=== PATIENT | female | born 1980 | race Caucasian/White ===

== ENCOUNTER 2020-01-30 10:47 | Inpatient (IN) | payer OTHER, SELFPAY ==
[~2020-01-30] VITALS: Ht 177.8 cm; Wt 90.7 kg
[2020-01-30 10:47] VITALS: BP_SYST 92
--- NOTE | 2020-01-30 10:47 | NUR ---
Patient to ER bed 7 to gown for evaluation. Side rails up.
--- NOTE | 2020-01-30 11:00 | NUR ---
ER Dr. Herndon at bedside examining patient.
[2020-01-30] MEDS ORDERED: NS 500 ML IV ONE (11:15)
--- NOTE | 2020-01-30 11:30 | NUR ---
Patient AAO x 4 BIB BLS from rehab facility for c/o hypotension with SBP 92 on triage. Patient denies weakness and pain at this time. 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 She is currently getting physical and occupational therapy since she is immobile in her lower extremities. Even chest rise and fall with respirations. Will continue to monitor.
[2020-01-30 11:45] LABS: BASOPHILS % (AUTO) 0.2 % (0.0-2.0); EOSINOPHILS # (AUTO) 0.2 K/uL (0.0-0.4); EOSINOPHILS % (AUTO) 2.6 % (0.0-4.0); HEMATOCRIT 31.3 % (36-48); HEMOGLOBIN 10.3 g/dL (12.0-16.0); LYMPHOCYTES # (AUTO) 0.7 K/uL (1.0-5.5); LYMPHOCYTES % (AUTO) 8.4 % (20.5-51.5); MEAN CORPUSCULAR HEMOGLOBIN 28 pg (27-31); MEAN CORPUSCULAR HGB CONC 33 % (32-36); MEAN CORPUSCULAR VOLUME 86 fL (79.0-98.0); MONOCYTES # (AUTO) 0.5 K/uL (0.0-1.0); MONOCYTES % (AUTO) 6.1 % (1.7-9.3); NEUTROPHILS # (AUTO) 7.3 K/uL (1.8-7.7); NEUTROPHILS % (AUTO) 82.7 % (40.0-70.0); PLATELET COUNT (AUTO) 444 K/uL (130-430); RED BLOOD CELL COUNT(AUTO) 3.65 MIL/uL (4.2-6.2); RED CELL DISTRIBUTION WIDTH 16.8 % (9.0-15.0); WHITE BLOOD COUNT (AUTO) 8.8 K/uL (4.8-10.8)
[2020-01-30] MEDS ORDERED: MAGN400T10 PO (11:48)
[2020-01-30] MEDS ORDERED: ACET325T PO (11:48)
[2020-01-30] MEDS ORDERED: METF1000 PO (11:48)
[2020-01-30] MEDS ORDERED: POLY17PO4 PO (11:48)
[2020-01-30] MEDS ORDERED: CEFU250T85 PO (11:48)
[2020-01-30] MEDS ORDERED: DICL50TA9 PO (11:48)
[2020-01-30] MEDS ORDERED: LOVI120 SQ (11:48)
--- NOTE | 2020-01-30 12:00 | NUR ---
#20 gauge angiocatheter placed to L antecubital. Use of asceptic technique. Opsite placed over site. Blood return noted. Flushed with 10 mL of normal saline. No evidence of infiltration noted. Patient tolerated well.
--- NOTE | 2020-01-30 12:02 | NUR ---
Medicated with 500 mL NS per MD orders. IVF infusing with no s/s of infiltration at this time. Will continue to monitor.
[2020-01-30 12:13] LABS: CALCIUM 8.9 mg/dL (8.4-11.0); CREATININE 0.81 mg/dL (0.55-1.30)
[2020-01-30 12:18] LABS: ALBUMIN 1.8 g/dL (3.4-4.8); TOTAL BILIRUBIN 0.3 mg/dL (0.0-1.0)
--- NOTE | 2020-01-30 12:24 | NUR ---
Note alyceone in EDM - 01/30/20 at 1224 by NIKHIL Patient given written and verbal discharge instructions and verbalizes understanding. ER discussed with patient the results and treatment provided. Patient in stable condition. ID arm band removed. Patient educated on pain management and to follow up with PMD. Pain Scale 0/10. Opportunity for questions provided and answered. Medication side effect fact sheet provided.
--- NOTE | 2020-01-30 12:37 | NUR ---
MRSA and rapid covid collected and sent to the lab
[2020-01-30] MEDS ORDERED: PREG75CA PO (12:59)
[2020-01-30] MEDS ORDERED: ONDA4TAB5 PO (12:59)
[2020-01-30] MEDS ORDERED: POTA15TA PO (12:59)
[2020-01-30] MEDS ORDERED: NALO4SPR NS (12:59)
[2020-01-30] MEDS ORDERED: PRO40 PO (12:59)
[2020-01-30] MEDS ORDERED: SENN8.6T19 PO (12:59)
[2020-01-30] MEDS ORDERED: hydromorphone (12:59)
[2020-01-30] MEDS ORDERED: LIDOINT TP (12:59)
[2020-01-30] MEDS ORDERED: BISA10SU61 RC (12:59)
[2020-01-30] MEDS ORDERED: SITA100T11 PO (12:59)
[2020-01-30] MEDS ORDERED: MORP90CP PO (12:59)
[2020-01-30] MEDS ORDERED: POTA-10 PO (12:59)
--- NOTE | 2020-01-30 13:00 | NUR ---
Medication reconciliation completed with information provided by medical record. Any prior medication reconciliation on file was reviewed and corrected.
[2020-01-30 13:17] LABS: CHOLESTEROL 64 mg/dL (<200); HDL CHOLESTEROL 23 mg/dL (>55); LDL CHOLESTEROL 24 mg/dL (<100); TRIGLYCERIDES 112 mg/dL (30-150)
--- NOTE | 2020-01-30 13:35 | NUR ---
Called telemetry unit at [phone] to request telemetry bed. Spoke with Arpan. She states she will call back with a bed assignment.
--- NOTE | 2020-01-30 13:51 | NUR ---
Patient will be admitted to care of Dr. Candelario. Admitted to telemetry unit. Will go to room 110B. Belongings list completed. Complete and up to date summary report printed. SBAR report to be given at bedside with opportunity for questions.
--- NOTE | 2020-01-30 14:06 | NUR ---
Admission Note Received patient from ER with diagnosis of hypotension DVT. Initial Plan of Care discussed-patient verbalized understanding. Oriented to room, call light, pain management and safety.
[2020-01-30 14:08] VITALS: BP_SYST 103
--- NOTE | 2020-01-30 14:22 | NUR ---
CONSULTATION PAGED REASON FOR CONSULTATION:HYPOTENSION WAS CONSULT CALLED?Y PERSON WHO WAS NOTIFIED:NAOMI CONSULTING PHYSICIAN:JUAN J [facility] PHONE NUMBER:[phone] ORDERING PHYSICIAN:LISA DAVILA
[2020-01-30] MEDS ORDERED: ONDANSETRON 4 MG ODT TAB PO PRN (14:30)
[2020-01-30] MEDS ORDERED: BISACODYL 10 MG/SUPPOSITORY RC PRN (14:30)
[2020-01-30] MEDS ORDERED: LIDOCAINE TOPICAL OINT 5%, 35 GM TP PRN (14:30)
[2020-01-30] MEDS ORDERED: GLUCOSE (DEXTROSE) ORAL GEL -Adults PO PRN (14:45)
[2020-01-30] MEDS ORDERED: INSULIN REGULAR, HUMAN 100 UNITS/ML, 10 ML VIAL (humuLIN R) SUBCUT PRN (14:45)
[2020-01-30] MEDS ORDERED: D5W 1,000 ML IV PRN (14:45)
[2020-01-30] MEDS ORDERED: DEXTROSE 50% JECT 50 ML DISP.SYRIN IVP PRN (14:45)
--- NOTE | 2020-01-30 14:45 | NUR ---
Opening Notes Patient is awake, alert and oriented x4. No resp distress at this time. Breathing is even and unlabored. Pt denies any pain at this time. Patient denies any NVD, cough or abnormal bleeding. No agitation at this time. IV site on left AC, 20 gauge intact at this time, flushing well. Dressing is clean and dry. Started IVF: NS @ 100 cc/hr, infusing well at this time. Pt remains on bedrest, able to assist with turning/repositioning in bed. Patient has weakness from waist down, active ROM on upper extremities. Patient is able to tolerate med pass well, no swallowing issues noted. Pt is noted with a small healing wound on right buttock and multiple tattoos. Patient was educated on the use of the call light and to ask for help when needed. Pt aware and agreed. All needs met at this time. Safety and fall precautions in place. Bed in lowest position, alarm on, locked. Will continue to monitor. Addendum: 01/30/20 at 1728 by Xenia Lange RN Pts BP: 106/86, 85 HR, sinus rhythm
[2020-01-30] MEDS: MAGNESIUM OXIDE 400 MG TABLET PO SCH ×2 (15:22→20:58)
[2020-01-30] MEDS: NACL 0.9% 1,000 ML IV SCH (15:23)
[2020-01-30 16:00] VITALS: BP_SYST 106
--- NOTE | 2020-01-30 16:00 | NUR ---
Patient is being seen and examined by COURT ALCANTAR
--- NOTE | 2020-01-30 16:25 | NUR ---
Notes Patient is laying in bed, resting and talking on the phone with her . No resp distress noted. Denies any pain at this time. IVF infusing at this time. No needs at this time. Will continue to monitor.
--- NOTE | 2020-01-30 17:00 | NUR ---
Patient is being seen and examined by DR. MOLINA
--- NOTE | 2020-01-30 17:28 | NUR ---
Blood Sugar Patients BS was noted at 118 mg/dL. Per sliding scale, no coverage needed at this time.
--- NOTE | 2020-01-30 18:58 | NUR ---
Closing Notes Patient is laying in bed, resting at this time. Alert and oriented x4. No resp distress noted. Breathing is even and unlabored at this time. IV site on left AC, 20 gauge intact at this time, NS @ 100 cc/hr, infusing well at this time. Pt denies any pain at this time. All needs met. Safety and fall precautions in place. Call light within reach. Bed in lowest position, alarm on, locked. Will continue to monitor.
--- NOTE | 2020-01-30 19:10 | NUR ---
OPENING NOTES Patient resting, no respiratory distress noted. Breathing is even and unlabored at this time. IV site patent, dressings c/d/i, IVF running. Call light within reach, bed alarm on, bed at lowest position. Will continue to monitor.
[2020-01-30 20:00] VITALS: BP_SYST 93
[2020-01-30] MEDS: PREGABALIN 75 MG CAPSULE (LYRICA) PO SCH (20:57)
[2020-01-30] MEDS: DICLOFENAC SODIUM 25 MG TABLET.DR PO SCH (20:57)
[2020-01-30] MEDS: SENNOSIDES 8.6 MG TABLET PO SCH (20:57)
[2020-01-30] MEDS: PANTOPRAZOLE SODIUM 40 MG TAB PO SCH (20:58)
--- NOTE | 2020-01-31 00:06 | NUR ---
Incontinence care provided, turning provided and patient helps. No signs of distress noted. Will continue to monitor.
[2020-01-31] MEDS: ACETAMINOPHEN 325 MG TABLET PO SCH ×2 (01:24→11:51)
[2020-01-31 01:25] LABS: BILIRUBIN,URINE NEGATIVE (NEGATIVE); BLOOD, URINE 2+ (NEGATIVE); CLARITY/URINE CLEAR (CLEAR); COLOR,URINE YELLOW (YELLOW); GLUCOSE,URINE NEGATIVE (NEGATIVE); KETONES,URINE NEGATIVE (NEGATIVE); LEUKOCYTE ESTERASE ,URINE 2+ (NEGATIVE); NITRITE, URINE NEGATIVE (NEGATIVE); PROTEIN URINE NEGATIVE (NEGATIVE); UROBILINOGEN,URINE 0.2 (0.2-1.0)
[2020-01-31] MEDS: NACL 0.9% 1,000 ML IV SCH ×2 (01:26→17:31)
[2020-01-31 01:32] LABS: BACTERIA,URINE FEW /HPF (None Seen)
[2020-01-31 01:39] VITALS: BP_SYST 99
--- NOTE | 2020-01-31 04:05 | NUR ---
Patient resting, no signs of distress noted. Rise and fall of chest noted. Will continue to monitor.
[2020-01-31 06:20] LABS: BASOPHILS % (AUTO) 0.3 % (0.0-2.0); EOSINOPHILS # (AUTO) 0.3 K/uL (0.0-0.4); EOSINOPHILS % (AUTO) 4.2 % (0.0-4.0); HEMOGLOBIN 9.8 g/dL (12.0-16.0); LYMPHOCYTES % (AUTO) 17.2 % (20.5-51.5); MEAN CORPUSCULAR HEMOGLOBIN 28 pg (27-31); MEAN CORPUSCULAR HGB CONC 33 % (32-36); MEAN CORPUSCULAR VOLUME 86 fL (79.0-98.0); MONOCYTES # (AUTO) 0.7 K/uL (0.0-1.0); MONOCYTES % (AUTO) 11.5 % (1.7-9.3); NEUTROPHILS # (AUTO) 4.1 K/uL (1.8-7.7); NEUTROPHILS % (AUTO) 66.8 % (40.0-70.0); PLATELET COUNT (AUTO) 407 K/uL (130-430); RED BLOOD CELL COUNT(AUTO) 3.49 MIL/uL (4.2-6.2); RED CELL DISTRIBUTION WIDTH 17.3 % (9.0-15.0); WHITE BLOOD COUNT (AUTO) 6.1 K/uL (4.8-10.8)
[2020-01-31 06:43] LABS: ALBUMIN 1.7 g/dL (3.4-4.8); CALCIUM 8.3 mg/dL (8.4-11.0); CREATININE 0.51 mg/dL (0.55-1.30); POTASSIUM 4.1 mmol/L (3.5-5.1); TOTAL BILIRUBIN 0.2 mg/dL (0.0-1.0)
--- NOTE | 2020-01-31 07:07 | NUR ---
CLOSING NOTES Patient resting, no respiratory distress noted. IV site patent, dressings c/d/i, IVF running. Call light within reach, bed alarm on, bed at lowest position. All needs met throughout shift. Will endorse care to oncoming shift.
[2020-01-31 07:45] VITALS: BP_SYST 92
--- NOTE | 2020-01-31 07:45 | NUR ---
INITIAL ROUNDS Received pt AAOx4, no s/s resp distress, no c/o pain or discomfort. Plan of care for the day reviewed with pt-pt verbalized her understanding. IVF infusing well to LAC at ordered rate with no s/s infiltration to site. Pt repositioned with pillow support and heels off-loaded for skin care. Pain management, disease process, skin and safety discussed-teach back done. Side rails up x3 andbed alarm on for safety, call light within reach.
[2020-01-31] MEDS ORDERED: MIDODRINE HCL 5 MG TABLET (PROAMATINE) PO ONE (10:00)
--- NOTE | 2020-01-31 10:00 | NUR ---
Nutrition Update Tyler Scale 15 noted. Pt admitted for hypotension, DVT. Diet: [facility] BMI: 28.7 kg/m2 RD to follow per nutrition care standards.
[2020-01-31] MEDS: PANTOPRAZOLE SODIUM 40 MG TAB PO SCH ×2 (10:08→20:28)
[2020-01-31] MEDS: MAGNESIUM OXIDE 400 MG TABLET PO SCH ×3 (10:08→20:28)
[2020-01-31] MEDS: DICLOFENAC SODIUM 25 MG TABLET.DR PO SCH ×2 (10:08→20:27)
[2020-01-31] MEDS: PREGABALIN 75 MG CAPSULE (LYRICA) PO SCH ×2 (10:09→20:27)
[2020-01-31] MEDS: ENOXAPARIN SODIUM 30 MG/0.3 ML SYRINGE SQ SCH (10:12)
--- NOTE | 2020-01-31 10:15 | NUR ---
ROUNDS Pt with no s/s resp distress, no c/o pain or discomfort. Pt given due medications.Pt had large, formed light brown bowel movement, pt cleaned up, moisture barrier cream to buttocks area-no redness noted. Pt repositioned with pillow support and heels off-loaded for skin care and comfort. Call light within reach.
[2020-01-31] MEDS: SENNOSIDES 8.6 MG TABLET PO SCH ×2 (10:32→21:00)
[2020-01-31] MEDS: ENOXAPARIN SODIUM 120 MG/0.8 ML SYRINGE SQ SCH (10:33)
--- NOTE | 2020-01-31 10:50 | NUR ---
Wound Evaluation: Wound Consult ordered for Low Tyler Score. Patient evaluated for a low Tyler score of 15. Patient was awake, alert, oriented and received in a Mir Bed with an IsoFlex CORAZON mattress, low air loss therapy was initiated. Patient needs assist to turn in bed. Skin Assessment: 1. Right buttock: Scar tissue, present on admission. Recommend: Cleanse involved area with mild soap and water. Pat dry. Apply moisture barrier cream to involved area. Perform site care 4 times daily as needed for soiling. Recommend: Reposition patient side to side only every 2 hours with pillow support. Elevate, off-load and float bilateral heels with pillows. Offload pressure areas with pillows for pressure re-distribution. Perform skin care and monitor skin integrity Q shift. Use moisture barrier cream on moisture susceptible areas QID PRN for soiling. Maintain patient on a low air-loss mattress.
[2020-01-31 12:00] VITALS: BP_SYST 97
--- NOTE | 2020-01-31 13:25 | NUR ---
ROUNDS/PAIN Pt c/o throbbing pain to bilat feet-elevated legs on pillows. MD called for pain medication-awaiting call back.
[2020-01-31] MEDS: MIDODRINE HCL 5 MG TABLET (PROAMATINE) PO SCH ×2 (15:18→20:28)
[2020-01-31 16:00] VITALS: BP_SYST 111
--- NOTE | 2020-01-31 16:17 | NUR ---
ROUNDS/MD Pt resting quietly in bed with no s/s resp distress, c/o sporadic foot pain too both feet-pt stated she spoke the SUPERVISOR YARD that came in and stated she will talk with the doctor about other pain medications-no new orders noted at this time. Will call MD for orders. Pt repositioned with heels off-loaded for skin care and comfort. All precautions remain in place.
--- NOTE | 2020-01-31 19:30 | NUR ---
ROUNDS PATIENT RESTING COMFORTABLY IN BED, NOT IN DISTRESS, VITALS STABLE. DENIES PAIN AT THIS TIME. ASSESSMENT DONE AND DOCUMENTED. SEE FLOWSHEET. NEEDS ATTENDED TO. SAFETY MEASURES IN PLACED. BED IN LOW AND LOCKED POSITION. CALL LIGHT PLACED WITHIN REACH.
--- NOTE | 2020-01-31 19:30 | NUR ---
CLOSING NOTE Pt sitting up in bed with no s/s resp distress, no c/o pain or discomfort. IVf infusing well to LAC at ordered rate with no s/s infiltration to site. Endorsed care to Courtney MOE. All precautions remain in place. Call light within reach.
[2020-01-31 20:00] VITALS: BP_SYST 115
--- NOTE | 2020-01-31 21:15 | NUR ---
MEDICATION DUE MEDICATIONS GIVEN SCHEDULED, TOLERATED WELL. WILL CONTINUE TO MONITOR.
[2020-02-01] VITALS: BP_SYST 119
--- NOTE | 2020-02-01 00:20 | NUR ---
ROUNDS PATIENT ASLEEP, VITALS STABLE, NO SOB NOR PAIN AND DISCOMFORT NOTED. WILL CONTINUE TO MONITOR.
--- NOTE | 2020-02-01 02:15 | NUR ---
ROUNDS PATIENT AWAKE, NEEDS TO BE CLEANED FOR INCONTINENT URINE, NEEDS ATTENDED TO. WILL CONTINUE TO MONITOR.
[2020-02-01 08:00] VITALS: BP_SYST 135
[2020-02-01] MEDS: SENNOSIDES 8.6 MG TABLET PO SCH (08:17)
[2020-02-01] MEDS: DICLOFENAC SODIUM 25 MG TABLET.DR PO SCH (08:18)
[2020-02-01] MEDS: PREGABALIN 75 MG CAPSULE (LYRICA) PO SCH (08:18)
[2020-02-01] MEDS: PANTOPRAZOLE SODIUM 40 MG TAB PO SCH (08:18)
[2020-02-01] MEDS: MIDODRINE HCL 5 MG TABLET (PROAMATINE) PO SCH ×2 (08:19→15:00)
[2020-02-01] MEDS: MAGNESIUM OXIDE 400 MG TABLET PO SCH ×2 (08:19→15:00)
[2020-02-01] MEDS: ENOXAPARIN SODIUM 30 MG/0.3 ML SYRINGE SQ SCH (08:20)
[2020-02-01] MEDS: ENOXAPARIN SODIUM 120 MG/0.8 ML SYRINGE SQ SCH (08:22)
[2020-02-01] MEDS: NACL 0.9% 1,000 ML IV SCH (08:23)
[2020-02-01] MEDS ORDERED: MIDO5TAB4 PO (10:59)
[2020-02-01 12:00] VITALS: BP_SYST 103
--- NOTE | 2020-02-01 12:41 | NUR ---
DC Planning: returning to [facility], per Ailyn given room # 210B RN to report # [phone] [phone]. >> Booked BLS[facility] with [facility] # [phone] to nut picker at 3pm. PAYAL Hood made aware. DC package delivered to [facility] unit.
[2020-02-01 12:47] VITALS: BP_SYST 135
--- NOTE | 2020-02-01 15:07 | NUR ---
alert, oriented, and appropriate, few words exchanged. Appetite for breakfast, and lunch, very little, less than 50%. " did not feel like eating anything." Cooperative with nursing care, unable to lift her legs on command, no swelling noted. R arm DVT +, on Lovenox 150mg sq. Her bp , taken manually by the author, 135/62 with HR 84, on ra, sat well. Seen by RIVETING MACHINE OPERATOR, patient discharged back to [place] Report given to [place], the one who will receive the patient to room 210b. Now picked up by [facility], patient is alert, oriented, and no complaint of pain on her legs ( this am, got Lyrica and Voltaren po)
--- NOTE | 2020-02-01 15:16 | NUR ---
asked the patient prior to discharge whether she wants Flu and Pneumonia vaccines, " Usually i want it, but this time I have to ask my oncologist first before i say yes or no".
== END 2020-02-01 15:10 | DRG 314 ==
LOC: SED 10:47 → STU 12:51
PROVIDERS: ADMIT Internal Medicine; ATTEND Internal Medicine
DX: I95.9 Hypotension, unspecified (principal); E43 Unspecified severe protein-calorie malnutrition; C56.9 Malignant neoplasm of unspecified ovary; R64 Cachexia; Z20.828 Contact with and (suspected) exposure to other viral communicable diseases; E11.9 Type 2 diabetes mellitus without complications; G89.29 Other chronic pain; Z88.5 Allergy status to narcotic agent; Z86.718 Personal history of other venous thrombosis and embolism; Z91.041 Radiographic dye allergy status; Z88.8 Allergy status to other drugs, medicaments and biological substances; Z87.440 Personal history of urinary (tract) infections
CPT/HCPCS: 36415; 80053; 80061; 81000-TC; 82962; 85025; 85379; 87081; 87086; 93005; 96360; 99285; G0378; J1650; J7030